=== PATIENT | female | born 1940 | race Caucasian/White ===

== ENCOUNTER → 2017-10-26 | Outpatient (CLI) | payer MEDICARE, OTHER ==
--- NOTE | 2017-10-26 21:49 | PCVCIMAG ---
EXAM: BILATERAL LOWER EXTREMITY ARTERIAL DUPLEX INDICATION: Peripheral Arterial Disease. Leg pain. Right leg nonhealing ulcer. FINDINGS: Right Leg: Common femoral profunda femoral arteries are patent. 50% stenosis [place] superficial femoral artery. Popliteal artery is patent. The anterior tibial artery is patent throughout. Occlusion of the peroneal artery. The posterior tibial artery is patent. Left Leg: Common femoral and profunda femoral arteries are patent. Superficial femoral and popliteal artery are patent. Occlusion of the mid/distal anterior tibial artery. Peroneal artery is occluded distally. The posterior tibial artery is patent. IMPRESSION: 50% stenosis mid [place] right superficial femoral artery. 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 Occlusion of the distal left peroneal artery. LOC:[id number]
== END | disposition home or self-care (01) ==
LOC: PCVCIMAG 14:52
PROVIDERS: ATTEND Emergency Medicine
DX: I73.9 Peripheral vascular disease, unspecified (principal); L97.911 Non-pressure chronic ulcer of unspecified part of right lower leg limited to breakdown of skin; I70.8 Atherosclerosis of other arteries
CPT/HCPCS: 93925